=== PATIENT | male | born 1970 | race Caucasian/White ===

== ENCOUNTER 2016-05-12 15:53 | Emergency (ER) | payer BC ==
[2016-05-12 17:29] LABS: BASO # 0.2 10_X3_uL (0.0-0.1); BASO % 1.5 % (0.2-1.2); EOS # 0.5 10_X3_uL (0.0-0.5); GRAN # 4.3 10_X3_uL (1.8-5.4); GRAN % 37.1 % (34.0-67.9); HEMATOCRIT 50.7 % (40-51); HEMOGLOBIN 17.7 g/dL (13.7-17.5); LYMPH # 5.6 10_X3_uL (1.3-3.6); LYMPH % 47.5 % (21.8-53.1); MEAN CORPUSCULAR HEMOGLOBIN 31.2 pg (27.0-33.0); MEAN CORPUSCULAR HGB CONC 34.9 g/dL (32.0-36.0); MEAN CORPUSCULAR VOLUME 89.4 fL (79-92); MEAN PLATELET VOLUME 10.2 fl (7.5-11.5); MONO # 1.2 10_X3_uL (0.3-0.8); MONO % 9.9 % (5.3-12.2); PLATELET COUNT 462 x10_3/uL (163-337); RED BLOOD COUNT 5.67 x10_6/uL (4.6-6.1); RED CELL DISTRIBUTION WIDTH 14.4 % (11.6-14.4); WHITE BLOOD COUNT 11.7 x10_3/uL (4.2-9.1)
[2016-05-12 17:59] LABS: ALBUMIN 4.6 gm/dL (3.4-5.0); ALKALINE PHOSPHATASE 83 U/L (50-136); ALT/SGPT 57 U/L (7.53-40.17); AST/SGOT 35 U/L (6.66-35.34); BILIRUBIN,TOTAL 0.39 mg/dL (0.0-1.0); BLOOD UREA NITROGEN 11 mg/dL (7-18); CALCIUM 9.9 mg/dL (8.7-10.7); CARBON DIOXIDE 23 mmol/L (21-32); CREATINE KINASE 176 U/L (35-232); CREATININE 0.8 mg/dL (0.6-1.3); GLUCOSE,RANDOM 79 mg/dL (70-99); POTASSIUM 4.4 mmol/L (3.5-5.1); SODIUM 139 mmol/L (136-145); TOTAL PROTEIN 7.4 gm/dL (6.4-8.2)
[2016-05-12 18:35] LABS: ERYTHROCYTE SEDIMENTATION RATE 3 mm/hr (0-10)
[2016-05-14 15:27] LABS: RHEUMATOID FACTOR <20 IU/mL (<20)
== END 2016-05-12 18:57 | disposition home or self-care (01) ==
LOC: ER 15:53
PROVIDERS: Internal Medicine
DX: M79.641 Pain in right hand (principal); R20.0 Anesthesia of skin; F17.210 Nicotine dependence, cigarettes, uncomplicated; I10 Essential (primary) hypertension; Z79.899 Other long term (current) drug therapy; Z90.81 Acquired absence of spleen
CPT/HCPCS: 36415; 80053; 82550; 82553; 83605; 84550; 85025; 85651; 86431; 93005; 99283-25